=== PATIENT | female | born 1925 | race Caucasian/White ===

== ENCOUNTER 2016-08-28 11:03 | Outpatient (CLI) | payer MEDICARE ==
[2016-08-28 11:51] LABS: Anion Gap 17 mmol/L (10-20); BUN (Urea Nitrogen) 31 mg/dL (9.8-20.1); Calc. Creatinine Clearance 0 mL/min (70-130); Calcium 9.4 mg/dL (7.8-10.44); Carbon Dioxide 22 mmol/L (23-31); Chloride 106 mmol/L (98-107); Estimated GFR-MDRD 23; Glucose 100 mg/dL (83-110); Potassium 4.1 mmol/L (3.5-5.1); Sodium 141 mmol/L (136-145)
== END 2016-08-28 11:04 | disposition home or self-care (01) ==
LOC: MADLABBHPM 11:03
PROVIDERS: ATTEND Internal Medicine Nephrology
DX: B02.9 Zoster without complications (principal)
CPT/HCPCS: 36415; 80048

== ENCOUNTER 2016-09-25 11:13 | Outpatient (CLI) | payer MEDICARE ==
[2016-09-25 12:02] LABS: Albumin 4.3 g/dL (3.4-4.8); Anion Gap 16 mmol/L (10-20); BUN (Urea Nitrogen) 37 mg/dL (9.8-20.1); Calc. Creatinine Clearance 0 mL/min (70-130); Calcium 9.7 mg/dL (7.8-10.44); Carbon Dioxide 21 mmol/L (23-31); Chloride 106 mmol/L (98-107); Estimated GFR-MDRD 24; Glucose 107 mg/dL (83-110); Sodium 139 mmol/L (136-145)
== END 2016-09-25 11:14 | disposition home or self-care (01) ==
LOC: MADLAB 11:13
PROVIDERS: ATTEND Internal Medicine Nephrology
DX: R80.9 Proteinuria, unspecified (principal); I12.9 Hypertensive chronic kidney disease with stage 1 through stage 4 chronic kidney disease, or unspecified chronic kidney disease; N18.4 Chronic kidney disease, stage 4 (severe)
CPT/HCPCS: 36415; 80048; 82040

== ENCOUNTER 2016-11-27 11:00 | Outpatient (CLI) | payer MEDICARE ==
[2016-11-27 11:32] LABS: Anion Gap 15 mmol/L (10-20); BUN (Urea Nitrogen) 32 mg/dL (9.8-20.1); Calc. Creatinine Clearance 0 mL/min (70-130); Calcium 9.6 mg/dL (7.8-10.44); Carbon Dioxide 23 mmol/L (23-31); Chloride 107 mmol/L (98-107); Estimated GFR-MDRD 23; Glucose 105 mg/dL (83-110); Potassium 3.8 mmol/L (3.5-5.1); Sodium 141 mmol/L (136-145)
== END 2016-11-27 11:01 | disposition home or self-care (01) ==
LOC: MADLABBHPM 11:00
PROVIDERS: ATTEND Internal Medicine Nephrology
DX: I12.9 Hypertensive chronic kidney disease with stage 1 through stage 4 chronic kidney disease, or unspecified chronic kidney disease (principal); N18.4 Chronic kidney disease, stage 4 (severe); R60.0 Localized edema
CPT/HCPCS: 36415; 80048; 83970